=== PATIENT | female | born 1990 | race Two or more races ===

== ENCOUNTER 2024-01-18 12:42 | Emergency (ER) | payer OTHER ==
[~2024-01-18] VITALS: Ht 167.6 cm; Wt 99.1 kg
[2024-01-18 13:44] VITALS: BP 101/71; PULSE 70; RESP 18; TEMP 98.5; O2SAT 98
[2024-01-18] MEDS: KETOROLAC TROMETH 60MG/2ML VIAL IM ONE (15:03)
[2024-01-18] MEDS ORDERED: ACET-1080 PO (15:03)
[2024-01-18] MEDS: ACETAMINOPHEN 500 MG TAB PO ONE (15:09)
== END 2024-01-18 15:21 | disposition home or self-care (01) ==
LOC: ER 12:42
DX: O9A.211 Injury, poisoning and certain other consequences of external causes complicating pregnancy, first trimester (principal); S83.91XA Sprain of unspecified site of right knee, initial encounter; Z79.1 Long term (current) use of non-steroidal anti-inflammatories (NSAID); X58.XXXA Exposure to other specified factors, initial encounter; Y93.89 Activity, other specified; Y92.89 Other specified places as the place of occurrence of the external cause; Y99.8 Other external cause status
CPT/HCPCS: 73562; 93971